=== PATIENT | male | born 1995 | race Caucasian/White ===

== ENCOUNTER 2016-09-18 16:17 | Emergency (ER) | payer OTHER ==
--- NOTE | 2016-09-18 17:02 | UC ---
Complaint Male HPI - HPI Summary HPI Summary: The patient comes in today for: 1. STD testing: Onset: No symptoms. Palliative/provocative: Nothing makes things better or worse. Quality: No pain. Region: Severity: 0/10 Associated symptoms: Event: The patient has no history of definite exposure. But he would want a "general screen." When defining what he wants in terms of a "general screen" he stated that he was interested in being testing for GC/Chlamydia. He is interested also in HIV and syphilis. Patient is in a new relationship and and he and his female sex partner are interested in "having a clean bill of health" at the beginning of their relationship. She has already been tested by his report. He is coming in simply to be screened for STD--no known exposures or symptoms. * - History of Current Complaint Chief Complaint: UCAbdominalPain Stated Complaint: STD TESTING Time Seen by Provider: 09/18/16 16:50 Hx Obtained From: Patient - Allergies/Home Medications Allergies/Adverse Reactions: Allergies Allergy/AdvReac Type Severity Reaction Status Date / Time No Known Allergies Allergy Verified 09/18/16 17:18 PMH/Surg Hx/FS Hx/Imm Hx Previously Healthy: Yes - Surgical History Surgical History: None Surgery Procedure, Year, and Place: wisdom tooth - Family History Known Family History: Positive: Hypertension, Diabetes - Social History Occupation: Employed Full-time Alcohol Use: None Substance Use Type: None Smoking Status (MU): Heavy Every Day Tobacco Smoker Review of Systems Constitutional: Negative Skin: Negative Eyes: Negative ENT: Negative Respiratory: Negative All Other Systems Reviewed And Are Negative: Yes Physical Exam Triage Information Reviewed: Yes Appearance: Well-Appearing, No Pain Distress, Well-Nourished Vital Signs: Initial Vital Signs Temp 97.8 F 09/18/16 16:26 Pulse 71 09/18/16 16:26 Resp 17 09/18/16 16:26 BP 124/72 09/18/16 16:26 Pulse Ox 99 09/18/16 16:26 Vital Signs Reviewed: Yes Eyes: Positive: Conjunctiva Clear. Negative: Discharge ENT: Positive: Hearing grossly normal. Negative: Pharynx normal, Pharyngeal erythema, Nasal congestion, Nasal drainage, TM dull, TM red, Tonsillar swelling , Tonsillar exudate Dental: Negative: Gross Decay/Caries @, Dental Fracture @ Neck: Positive: Supple, Nontender, No Lymphadenopathy. Negative: Nuchal Rigidity Respiratory: Positive: Lungs clear, No respiratory distress, No accessory muscle use. Negative: Crackles, Wheezing Cardiovascular: Positive: RRR, No Murmur Abdomen Description: Positive: Nontender, No Organomegaly, Soft. Negative: Distended, Guarding Musculoskeletal: Positive: Strength Intact, ROM Intact Neurological: Positive: Alert, Muscle Tone Normal Psychological: Positive: Age Appropriate Behavior, Consolable Skin: Negative: rashes, breakdown UC Physical Exam - Genitalia Exam Male Genitalia: Not Circumcised, Other - Genital: No skin lesions. Uncircumcised, testes down bilaterally and free of masses. No discharge. Male Genitalia Cont.: Bilateral: Testicles Descended Complaint Male Course/Dx - Course Course Of Treatment: He was told of his testing options and he is interested in the ordered labs. - Differential Dx/Diagnosis Provider Diagnoses: STD testing/screening Discharge - Discharge Plan Condition: Stable Disposition: HOME Patient Education Materials: Sexually Transmitted Diseases (ED), Condom Use (ED ), Safe Sex (ED) Referrals: Bayron Underwood MD [Primary Care Provider] - 1 Week (If you don't hear from us regarding your test results (gonorrhea, chlamydia, HIV, syphils) in a week, please call us for the results. )
[2016-09-18 17:24] VITALS: BP 131/83
[2016-09-19 11:49] LABS: Syphilis Index < 0.1 Index
== END 2016-09-18 18:12 | disposition home or self-care (01) ==
LOC: UCEAST 16:17
DX: Z11.3 Encounter for screening for infections with a predominantly sexual mode of transmission (principal); Z72.0 Tobacco use
CPT/HCPCS: 36415; 86592; 87491; 87591; 99201; G0463

== ENCOUNTER 2017-06-10 13:26 | Emergency (ER) | payer SELFPAY ==
[2017-06-10 13:38] VITALS: BP 129/86
--- NOTE | 2017-06-10 13:42 | UC ---
Throat Pain/Nasal Tano HPI - HPI Summary HPI Summary: Pt presents with a sore throat for the last 2 days. He has no other symptoms. He has not taken anything for his discomfort. Still eating and drinking without difficulty. Denies fever, chills, cough, SOB, chest pain. - History of Current Complaint Chief Complaint: UCRespiratory Stated Complaint: SORE THROAT Time Seen by Provider: 06/10/17 13:41 Hx Obtained From: Patient Onset/Duration: Sudden Onset Severity: Moderate Pain Intensity: 5 Pain Scale Used: 0-10 Numeric - Allergies/Home Medications Allergies/Adverse Reactions: Allergies Allergy/AdvReac Type Severity Reaction Status Date / Time No Known Allergies Allergy Verified 06/10/17 13:38 PMH/Surg Hx/FS Hx/Imm Hx Previously Healthy: Yes - Surgical History Surgical History: None Surgery Procedure, Year, and Place: wisdom tooth - Family History Known Family History: Positive: Hypertension, Diabetes - Social History Occupation: Student Lives: Dormitory/Roommates Alcohol Use: None Substance Use Type: None Smoking Status (MU): Light Every Day Tobacco Smoker Amount Used/How Often: 1 sig/week Review of Systems Constitutional: Negative Skin: Negative Eyes: Negative ENT: Sore Throat Respiratory: Negative Cardiovascular: Negative Gastrointestinal: Negative Neurological: Negative Psychological: Negative All Other Systems Reviewed And Are Negative: Yes Physical Exam - Summary Physical Exam Summary: GENERAL: NAD. WDWN. No pain distress. SKIN: No rashes, sores, ulcers, masses, lesions. HEENT: Head: AT/NC Eyes: Conjunctiva clear without inflammation or discharge. Ears: Hearing grossly normal. TMs intact, no bulging, erythema, or edema. Nose: Nasal mucosa pink and moist. NTTP maxillary and frontal sinus. Throat: Posterior oropharynx mild erythema. No tonsillar enlargement. No exudates. Uvula midline. No hoarse voice or muffled voice. NECK: Supple. Nontender. No lymphadenopathy. CHEST: CTAB. No r/r/w. No accessory muscle use. Breathing comfortably and in no distress. CV: RRR. Without m/r/g. Pulses intact. Brisk cap refill. NEURO: Alert. CN II-XII grossly intact. PSYCH: Age appropriate behavior. Triage Information Reviewed: Yes Vital Signs: Initial Vital Signs Temp 97.8 F 06/10/17 13:30 Pulse 80 06/10/17 13:30 Resp 16 06/10/17 13:30 BP 129/86 06/10/17 13:30 Pulse Ox 98 06/10/17 13:30 Throat Pain/Nasal Course/Dx - Course Course Of Treatment: POC strep negative. Advised rest, fluids, and ibuprofen prn. - Differential Dx/Diagnosis Provider Diagnoses: Pharyngitis Discharge - Discharge Plan Condition: Stable Disposition: HOME Patient Education Materials: Pharyngitis (ED) Referrals: No Primary Care Phys,NOPCP [Primary Care Provider] - Additional Instructions: If you develop a fever, shortness of breath, chest pain, new or worsening symptoms - please call your PCP or go to the ED.
[2017-06-10] MEDS ORDERED: Ibuprofen TAB* 600 MG PO ONE (13:44)
== END 2017-06-10 14:05 | disposition home or self-care (01) ==
LOC: UCEAST 13:26
DX: J02.9 Acute pharyngitis, unspecified (principal); F17.210 Nicotine dependence, cigarettes, uncomplicated
CPT/HCPCS: 87651; 99212; A9270-GY; G0463

== ENCOUNTER 2019-01-30 10:46 | Emergency (ER) | payer MEDICAID, OTHER ==
[2019-01-30 11:50] VITALS: BP 118/77
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
== END 2019-01-30 13:11 | disposition home or self-care (01) ==
LOC: UCCORT 10:46
DX: S22.42XA Multiple fractures of ribs, left side, initial encounter for closed fracture (principal); Z87.891 Personal history of nicotine dependence; V43.52XA Car driver injured in collision with other type car in traffic accident, initial encounter; Y92.488 Other paved roadways as the place of occurrence of the external cause
CPT/HCPCS: 99211; G0463